=== PATIENT | male | born 1995 | race Caucasian/White ===

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

== ENCOUNTER 2021-04-09 07:30 | Emergency (ER) | payer OTHER ==
[2021-04-09 08:39] LABS: HEMOGLOBIN 14.5 gm/dl (14.0-17.5); RED BLOOD COUNT 5.43 M/UL (4.20-5.50); WHITE BLOOD COUNT 12.6 K/UL (4.5-11.0)
[2021-04-09 09:59] LABS: BUN/CREATININE RATIO 16 (0-10)
== END 2021-04-09 11:07 | disposition home or self-care (01) ==
LOC: ER1 07:30
PROVIDERS: Physician Assistant
DX: R07.89 Other chest pain (principal); R42 Dizziness and giddiness; R00.0 Tachycardia, unspecified
CPT/HCPCS: 71045; 80053; 82550; 82553; 83874; 84484; 85025; 93005; 99285; J7030